=== PATIENT | male | born 1935 | race Caucasian/White ===

== ENCOUNTER → 2017-02-13 | Outpatient (REF) | payer MEDICARE, OTHER ==
[~2017-02-13] MED LIST: COUM2TAB22 PO
[2017-02-13 17:22] LABS: REASON FOR REVIEW COMPREHENSIVE REVIEW
[2017-02-13 18:00] LABS: RETIC HEMOGLOBIN CONTENT CHr 28.6 PG (24-36); RETICULOCYTE ABSOLUTE ADVIA212 48 x10(9)/L (17-77)
[2017-02-13 19:05] LABS: PERCENT SATURATION 5.1 % (19.7-50.0)
== END ==
LOC: M LAB REF 16:54
PROVIDERS: ATTEND Internal Medicine Medical Oncology
DX: D61.818 Other pancytopenia (principal); C61 Malignant neoplasm of prostate

== ENCOUNTER → 2017-04-03 | Outpatient (REF) | payer MEDICARE | LOC: M LAB REF 12:42 | PROVIDERS: ATTEND Internal Medicine Medical Oncology | DX: D61.818 Other pancytopenia (principal) ==

== ENCOUNTER → 2017-04-27 | Outpatient (REF) | payer MEDICARE ==
[2017-04-27 14:42] LABS: RETIC HEMOGLOBIN EQUIVALENT 26.8 pg (24-36); RETICULOCYTE % 1.5 % (0.5-1.5)
== END ==
LOC: M LAB REF 12:54
PROVIDERS: ATTEND Internal Medicine Medical Oncology
DX: D64.9 Anemia, unspecified (principal)

== ENCOUNTER 2017-04-28 09:01 | Outpatient (CLI) | payer MEDICARE ==
[~2017-04-28 09:01] MED LIST changes: +ACETAMINOPHEN TAB 650MG DOSE (2X325MG) PO SCH; -COUM2TAB22 PO; +diphenhydrAMINE 25 MG CAP PO SCH
[2017-04-28] MEDS ORDERED: COUM2TAB22 PO (13:36)
== END 2017-04-28 14:30 | disposition home or self-care (01) ==
LOC: M INFU 09:01
PROVIDERS: ATTEND Internal Medicine Medical Oncology
DX: D64.9 Anemia, unspecified (principal); Z95.0 Presence of cardiac pacemaker; Z96.642 Presence of left artificial hip joint; Z90.5 Acquired absence of kidney; Z85.528 Personal history of other malignant neoplasm of kidney; Z85.46 Personal history of malignant neoplasm of prostate; Z79.01 Long term (current) use of anticoagulants
CPT/HCPCS: 36430; P9016

== ENCOUNTER → 2017-05-25 | Outpatient (REF) | payer MEDICARE ==
[~2017-05-25] MED LIST changes: -ACETAMINOPHEN TAB 650MG DOSE (2X325MG) PO SCH; +COUM2TAB22 PO; -diphenhydrAMINE 25 MG CAP PO SCH
[2017-05-25 14:05] LABS: PERCENT SATURATION 12.8 % (19.7-50.0)
== END ==
LOC: M LAB REF 13:36
PROVIDERS: ATTEND Internal Medicine Medical Oncology
DX: C61 Malignant neoplasm of prostate (principal)

== ENCOUNTER → 2017-08-22 | Outpatient (REF) | payer MEDICARE ==
[2017-08-22 01:53] LABS: EOS % 0.4 % (0.0-3.0); HEMATOCRIT 25.2 % (42.0-52.0); HEMOGLOBIN 7.8 g/dl (14.0-18.0); IMMATURE GRANULOCYTE % 0.4 % (0-3.0); LYMPH # 0.5 10^3/uL (1.5-4.5); LYMPH % 19.2 % (24.0-44.0); MEAN CORPUSCULAR HEMOGLOBIN 28.4 pg (27.0-33.0); MEAN CORPUSCULAR VOLUME 91.6 fl (80.0-96.0); MONO # 0.4 10^3/uL (0.0-0.8); MONO % 15.2 % (0.0-5.0); NEUTROPHILS # 1.8 10^3/uL (1.8-7.7); NEUTROPHILS % 64.8 % (36.0-66.0); RED BLOOD COUNT 2.75 10^6/uL (4.30-6.10); RED CELL DISTRIBUTION WIDTH 16.7 % (11.5-14.5); WHITE BLOOD COUNT 2.8 10^3/uL (4.0-10.0)
[2017-08-22 02:18] LABS: ALBUMIN 2.5 GM/DL (3.2-5.2); ALBUMIN/GLOBULIN RATIO 0.68 (1.00-1.93); ALKALINE PHOSPHATASE 69 U/L (45-117); ALT/SGPT 49 U/L (12-78); ANION GAP 9 MEQ/L (8-16); AST/SGOT 22 U/L (7-37); BILIRUBIN,TOTAL 0.3 MG/DL (0.2-1.0); BLOOD UREA NITROGEN 25 MG/DL (7-18); C REACTIVE PROTEIN QUANTITATIV 2.41 MG/DL (0.00-0.30); CALCIUM LEVEL 7.3 MG/DL (8.8-10.2); CARBON DIOXIDE LEVEL 20 MEQ/L (21-32); CHLORIDE LEVEL 114 MEQ/L (98-107); CREATININE FOR GFR 1.56 MG/DL (0.70-1.30); GLOMERULAR FILTRATION RATE 45.4 (>35); GLUCOSE, FASTING 126 MG/DL (70-100); POTASSIUM SERUM 5.6 MEQ/L (3.5-5.1); SODIUM LEVEL 143 MEQ/L (136-145); TOTAL PROTEIN 6.2 GM/DL (6.4-8.2)
[2017-08-22 03:29] LABS: ADD MORPHOLOGY? YES; PLATELET COUNT, AUTOMATED 63 10^3/uL (150-450)
[2017-08-22 03:33] LABS: PLATELET ESTIMATE DECREASED (NORMAL)
[2017-08-22 03:35] LABS: ACANTHOCYTES 2+; ANISOCYTOSIS 1+
[2017-08-22 03:53] LABS: ERYTHROCYTE SEDIMENTATION RATE 22 mm/hr (0-20)
== END ==
LOC: M LAB REF 10:09
DX: T82.7XXD Infection and inflammatory reaction due to other cardiac and vascular devices, implants and grafts, subsequent encounter (principal); Y82.8 Other medical devices associated with adverse incidents
CPT/HCPCS: 80053